=== PATIENT | female | born 2000 | race Caucasian/White ===

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

== ENCOUNTER 2022-06-29 11:53 | Inpatient (IN) | payer OTHER ==
[~2022-06-29] VITALS: Ht 167.6 cm; Wt 54.1 kg
[~2022-06-29 11:53] MED LIST changes: +ESCITALOPRAM OX10 MG PO; +HYDROXYZINE HCL25 MG PO; +ZOFRAN4 MG PO
--- NOTE | 2022-06-29 14:00 | NUR ---
PT ADMITTED TO CCU. REPORT RECEIVED FROM NEREIDA MEJIA. PT BROUGHT UP TO ROOM VIA STRECTHER BY THIS RN. MOTHER AT BEDSIDE. ASSESSMENT COMPLETED WELL CHARTING. PT HAS IV PLACED IN RIGHT FOREARM. PT LUNG SOUNDS SHOW EXPIRATORY WHEEZE, ACTIVE BOWEL TONES, AND STRONG HEART SOUNDS. PT SKIN INTACT WITH BRUSIE ON LEFT SHOULDER AND RIGHT WRIST. PT ALERT AND ORIENTED, PERRLA. PT HAS ABX FINISHING THROUGH LFA IV THAT WERE STARTED IN ED.
--- NOTE | 2022-06-29 15:45 | NUR ---
PT ASSISTED TO BATHROOM AND BACK TO BED WITH 1PA. PT UNSTEADY ON FEET AND ADVISED TO HOLD ON TO IV POLE THIS RN ASSISTED. PT VOIDED ADEQUATELY. P ASSISTED BACK INTO BED. MOTHER AT BEDSIDE, STATES SHE IS GOING HOME TO [employer] AND THEN SHE WILL BE BACK IN.
[2022-06-29] MEDS ORDERED: SERTRALINE HCL100 MG PO (16:16)
[2022-06-29] MEDS ORDERED: SERTRALINE HCL25 MG PO (16:16)
[2022-06-29] MEDS ORDERED: MONTELUKAST SOD10 MG PO (16:17)
[2022-06-29] MEDS ORDERED: VENTOLIN HFA18 GM INH (16:19)
--- NOTE | 2022-06-29 16:24 | NUR ---
PT RESTING IN BED IN ROOM WITH CALL LIGHT WITHIN REACH. PT LUNG SOUNDS DIMINISHED WITH EXPIRATORY WHEEZE THROUGHOUT. HEART SOUNDS STRONG, FAST. BOWEL TONES ACTIVE. PT ALERT AND ORIENTED, PERRLA. PT DENIES PAIN, NAUSEA, SOB. COMPLAINT OF GENERALIZED WEAKNESS. PT IS AFEBRILE AT THIS TIME. HR 95, BP 120/77 (89), O2 96%, AND RR 30.
--- NOTE | 2022-06-29 16:30 | NUR ---
Spoke with pt. She is tired. States Pricilla MOSS is her pcp. She lives alone in low income housing at the [facility]. 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 She works at [employer] which is within walking distance. She does not use any DME. States she has had tachycardia in the past, but did follow up. Plans on dc to home. Her mom, Brenda, is her emergency contact and works at [employer]. Pt is concerned about paying rent if she is not working. Let her know to contact crane manager and discuss and also to contact the hospital when she receives her bill to discuss payment plan. Home when cleared medically, mom will transport to home.
--- NOTE | 2022-06-29 17:57 | NUR ---
PT MOTHER BACK IN ROOM. PT RESTING IN BED WITH EYES CLOSED AND RESPIRATIONS EVEN AND UNLABORED. PT WOKE UP, ASKED PT ABOUT DINNER, PT DENIED WANTING TO EAT, STATING SHE IS TIRED. PT HAS POTASSIUM WITH D5 INFUSING IN RIGHT FA AND LR @ 125ML/HR IN LEFT FA. PT DENIES FURTHER NEEDS AT THIS TIME.
--- NOTE | 2022-06-29 18:05 | NUR ---
PHARMACIST JERRY IN ROOM DISCUSSING MEDICATION WITH PT AND MOTHER.
--- NOTE | 2022-06-29 18:09 | NUR ---
Medications reconciled using pharmacy records and interview with patient and patient's mother
--- NOTE | 2022-06-29 19:59 | NUR ---
PATIENT UP TO THE BATHROOM. STEADY ON HER FEET BUT SLOW. PATIENT REPORTS FEELING STIFF. PATIENT IS DIAPHORETIC AND FEELS COLD. ORAL TEMP WNL. GOWN AND BEDDING CHANGED, WARM BLNAKET PROVIDED. PATIENT DENIES PAIN OR NAUSEA. URINE IS CLEAR YELLOW. VS STABLE. IVF PER ORDER, SITE WNL. FAMILY AT BEDSIDE. NO OTHER NEEDS AT THIS TIME. CALL LIGHT IN REACH.
--- NOTE | 2022-06-29 22:47 | NUR ---
PATIENT APPEARS RESTFUL. VS STABLE. IV FLUIDS PER ORDER, SITE WNL. ALLOWED PATIENT TO REST. FAMILY AT BEDSIDE.
--- NOTE | 2022-06-30 00:13 | NUR ---
patient appears to be resting when rn in room. eye closed, vs stable. potassium rider started; iv site wnl.
--- NOTE | 2022-06-30 00:30 | NUR ---
PATIENT BECAME VERY ANXIOUS, CRYING AND MOVING RESTLESSLY IN BED. PATIENT IS NOT REPORTING HER CONCERNS TO STAFF DIRECTLY BUT HER MOM IS AT BEDSIDE AND HELPS TO CALM PATIENT. PATIENT REPORTS PAIN "EVERYWHERE". HR ELEVATED TO 110 AND RR 25. ORAL TEMP WNL. PATIENT DENIES DIRECT PAIN AT IV SITE; WHICH APPEARS WNL. DISCUSSED WITH . PATIENT RECEIVED ONE TIME DOSE OF TORADOL AND PRN ATIVAN. AFTER SEVERAL MINS PATIENT APPEARED MORE CALM.
--- NOTE | 2022-06-30 01:30 | NUR ---
PATIENT IS RESTING IN BED USING HER CELL PHONE. PATIENT IS CALM AND REPORTS IMPROVEMENT IN SYMPTOMS BUT DIFFICULTY SLEEPING. FRESH ICE WATER PROVIDED. PATIENT DENIED ANY OTHER NEEDS. CALL LIGHT IN REACH.
--- NOTE | 2022-06-30 05:48 | NUR ---
NEW IV FLUIDS STARTED. IV SITE WNL. PATIENT REQUEST A WARM BLANKET WHICH WAS PROVIDED. PATIENT DENIED NEED TO VOID. VS STABLE. CALL LIGHT IN REACH.
--- NOTE | 2022-06-30 07:51 | NUR ---
REPORT RECEIVED FROM NIGHT RN - PT SLEEPING ON SIDE IN BED, RR EVEN AND UNLABORED. VS WNL. CALL LIGHT AT SIDE AND MOTHER ASLEEP ON COUCH.
--- NOTE | 2022-06-30 08:25 | NUR ---
PATIENT RESTING IN BED WITH EYES CLOSED. MOM RESTING ON COUCH. TOOK SEVERAL TRIES BUT PATIENT FINALLY WOKE AND VITALS WERE TAKEN AND CHARTED. FRESH ICE WATER PROVIDED. PATIENT WILL WAKE AWHILE LONGER FOR BREAKFAST. CALL LIGHT AND PERSONALL ITEMS IN EASY REACH
--- NOTE | 2022-06-30 09:00 | NUR ---
Spoke with pt, no change in plan for cm at this time.
--- NOTE | 2022-06-30 09:00 | NUR ---
ASSESSMENT COMPLETE - PT WAKES EASILY, DENIES PAIN OR NAUSEA. VS REMAINS STABLE, RA. IV SITE PATENT X 2, ABX INFUSION STARTED. PT ANXIETY IMPROVED THIS AM. ALONE IN ROOM AND NOT DEMONSTRATING ANY SIGNS OF DISTRESS. CALL LIGHT AT SIDE.
--- NOTE | 2022-06-30 10:17 | NUR ---
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 PT IS STABLE CONDITION. ALL BELONGINGS SENT. PT TO UPDATE MOTHER ON CHANGE IN ROOMS VIA TEXT. REPORT GIVEN TO VINCE MEJIA.
--- NOTE | 2022-06-30 10:19 | NUR ---
RECEIVED BEDSIDE REPORT FROM DIANNE GLORIA RN. PT WAS TRANSFERRED FROM CCU AT THIS TIME. 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 DENIES ANY NEEDS AT THIS TIME, PT'S BED WAS CHANGED BEFORE COMING TO CCU, PT HAD TO VOID BEFORE ARRIVING HERE THEN WAS TRANSFERRRED IN HER BED. HOWEVER PT IS ABLE TO STAND AND AMBULATE WITH STANDBY ASSIST.
--- NOTE | 2022-06-30 11:00 | NUR ---
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 PT WAS ABLE TO AMBULATE WITH STANDBY ASSIT TO BATHROOM. PT BACK TO BED DENIES OTHER NEEDS, CALL LIGHT IN PLACE.
--- NOTE | 2022-06-30 12:32 | NUR ---
RECIEVED HAND OFF REPORT FROM ROBERTO PARIKH. PT AWAKE IN BED. DENIES FURTHER NEEDS. CALL LIGHT WITHIN REACH.
--- NOTE | 2022-06-30 13:25 | NUR ---
PT REPORTS A HEADACHE, PAIN /. PRN PAIN MEDICATION ADMINISTERED (PER EMAR). DENIES FURTHER NEEDS. CALL LIGHT WITHIN REACH.
--- NOTE | 2022-06-30 14:52 | NUR ---
PT RESTING AT THIS TIME, EYES CLOSED, EASY TO AROUSE. DENIES FURTHER NEEDS. CALL LIGHT WITHIN REACH
--- NOTE | 2022-06-30 16:30 | NUR ---
AFTERNOON ASSESSEMENT COMPLETE. PT RESTING IN BED AWAKE. DENIES PAIN. LUNG SOUNDS COURSE BILAT UPPER, DIM BILAT LOWER. IVF ADMINISTERING AT THIS TIME. DENIES PAIN AND NAUSEA. CALL LIGHT WITHIN REACH.
--- NOTE | 2022-06-30 16:53 | NUR ---
REPORTED TO THIS RN THAT PT WAS UNCONTROALABLY CRYING. ADMINISTERED PRN ATIVAN (PER EMAR). MOTHER AT BEDSIDE. CALL LIGHT WITHIN REACH. DENIES FUTHER NEEDS
--- NOTE | 2022-06-30 17:27 | NUR ---
CHECKED ON PATIENT. PT RESTING CALMLY IN BED, ON CELL PHONE. PT STATES SHE IS OKAY AND DENIES ANY NEEDS AT THIS TIME. REASSURED PT TO CALL WITH ANY NEEDS.
[2022-06-30] MEDS ORDERED: AMOX TR-K CLV1 EAC1 PO (18:33)
== END 2022-06-30 19:15 | disposition home or self-care (01) | DRG 871 ==
LOC: ED 11:53 → CCU 13:29 → MS 06-30 10:19
PROVIDERS: ADMIT Internal Medicine; ATTEND Internal Medicine
DX: A41.9 Sepsis, unspecified organism (principal); J13 Pneumonia due to Streptococcus pneumoniae; I47.1 Supraventricular tachycardia; J45.901 Unspecified asthma with (acute) exacerbation; Z20.822 Contact with and (suspected) exposure to COVID-19; E87.6 Hypokalemia; F41.9 Anxiety disorder, unspecified; Z90.49 Acquired absence of other specified parts of digestive tract; Z90.89 Acquired absence of other organs; Z79.899 Other long term (current) drug therapy
CPT/HCPCS: 36415; 71045; 80048; 80053; 81001; 83605; 83735; 84703; 85025; 87502; 94640; A9270; C9113; C9803; J0456; J0696; J1650; J1885; J2060; J2920; J3480; J7030; J7060; J7121; U0003

== ENCOUNTER 2024-03-12 07:30 | Day surgery (SDC) | payer OTHER ==
[~2024-03-12] VITALS: Ht 167.6 cm; Wt 51.6 kg
[~2024-03-12 07:30] MED LIST changes: +AMOX TR-K CLV1 EAC1 PO; +CEFAZOLIN SODIUM 2 GM/20 ML SYR IV SCH; +IBLOOD GLUCOSE TEST STRIP 1 EA TEST VI PRN; +LACTATED RINGER'S 1,000 ML IV SCH; +LIDOCAINE HCL 1% 5 ML SDV INJ ONE; +MONTELUKAST SOD10 MG PO; +SERTRALINE HCL100 MG PO; +SERTRALINE HCL25 MG PO; +VENTOLIN HFA18 GM INH
[2024-03-12 07:39] VITALS: BP 115/58
[2024-03-12] MEDS ORDERED: OXYMETAZOLINE HCL 30 ML BTL NAS SCH (08:00)
[2024-03-12] MEDS ORDERED: fentaNYL citrate 100 MCG/2 ML VIAL ONE (08:31)
[2024-03-12] MEDS ORDERED: LIDOCAINE HCL 2% 5 ML SDV ONE (08:31)
[2024-03-12] MEDS ORDERED: ondansetron HCL 4 MG/2 ML VIAL ONE (08:31)
[2024-03-12] MEDS ORDERED: propofoL 200 MG/20 ML VIAL ONE (08:31)
[2024-03-12] MEDS ORDERED: MIDAZOLAM HCL 2 MG/2 ML VIAL ONE (08:31)
[2024-03-12] MEDS ORDERED: DEXAMETHASONE SOD PHOS 4 MG/ML VIAL ONE (08:31)
[2024-03-12] MEDS ORDERED: ACETAMINOPHEN 1,000 MG/100 ML VIAL ONE (09:05)
[2024-03-12] MEDS ORDERED: SEVOFLURANE 250 ML BTL ONE (09:28)
[2024-03-12] MEDS ORDERED: IBLOOD GLUCOSE TEST STRIP 1 EA TEST VI PRN (09:45)
[2024-03-12] MEDS ORDERED: MIDAZOLAM HCL 2 MG/2 ML VIAL IV PRN (09:45)
[2024-03-12] MEDS ORDERED: fentaNYL citrate 50 MCG/ML SDV IV PRN (09:45)
[2024-03-12] MEDS ORDERED: ondansetron HCL 4 MG/2 ML VIAL IV PRN (09:45)
[2024-03-12] MEDS ORDERED: NALOXONE HCL 0.4 MG SYR IV PRN (09:45)
--- NOTE | 2024-03-12 10:09 | NUR ---
03/12/24 1009 Cathleen Griffiths 0953 PT ARRIVED IN PACU NON RESPONSIVE TO NOXIOUS STIMULI WITH OPA IN PLACE. CHIN LIFT HELD BY RN. 0950 PT REACTIVE. OPA REMOVED. 1003 C/O 8 PAIN IN NOSE. FENTANYL 50MCG GIVEN IVP. 1009 PAIN DOWN TO 10.
--- NOTE | 2024-03-12 10:15 | NUR ---
PT ARRIVES TO DS FROM PACU VIA STRETCHER. PT IS DROWSY, BUT ASKING APPROPRIATE QUESTIONS AND RESPONSIVE TO VERBAL STIMULI. PT REPORTS PAIN IS 1/10 AND TOLERABLE AT THIS TIME, W/NO NAUSEA. PT ON RA W/RESPIRATIONS EVEN AND UNLABORED, NO SIGNS OF DISTRESS W/O2>90% PER PULSE OX. REPORT RECEIVED FROM RONNA MEJIA W/SISTER AT BEDSIDE. PACKING IN PLACE, PT EDUCATED THAT MUST STAY IN PLACE AND TO AVOID TOUCHING, PT STATES VERBAL UNDERSTANDING AT THIS TIME. JELLO, ICE WATER, AND CRACKERS PROVIDED, PT TOLERATING ICE WATER WITHOUT DIFFICULTY. CALL LIGHT WITHIN REACH, PT STATES NO FURTHER NEEDS OR QUESTIONS AT THIS TIME.
[2024-03-12 10:17] VITALS: BP 118/66
--- NOTE | 2024-03-12 10:55 | NUR ---
IN PT ROOM FOR PAIN ASSESSMENT. PT STATES PAIN IS TOLERABLE AT THIS TIME. PT CONSUMED JELLO AND CRACKERS W/OUT ONSET OF NAUSEA. DRIP PAD PLACED AND DEMONSTRATED FOR PT AND PT SISTER. VERBAL UNDERSTANDING BY PT TO DEMONSTRATION. PT STATES NO FURTHER QUESTIONS OR NEEDS AT THIS TIME, CALL LIGHT WITHINR EACH.
[2024-03-12] MEDS ORDERED: HYDROCODONE/ACETA 5/325 TAB PO PRN (11:00)
--- NOTE | 2024-03-12 11:10 | NUR ---
IN PT ROOM FOR ATTEMPT TO URINE VOID. PT SITS AT BEDSIDE AND REPORTS NO NAUSEA/DIZZINESS. PT STANDS AT BEDSIDE AND NO NAUSEA/DIZZINESS REPORTED. PT GAIT STEADY, THIS RN STANDBY ASSIST TO RESTROOM FOR PT URINE VOID OF 550 ML CLEAR/YELLOW URINE. PT BACK IN ROOM AND GETTING DRESSED AT THIS TIME. PT IN ROOM TO ASSIST. CALL LIGHT WITHIN REACH.
--- NOTE | 2024-03-12 11:13 | OR ---
[facility] [address] [place], [place] [address] Signed DATE OF OPERATION: 03/12/2024 SURGEON: Carlos Reed MD PREOPERATIVE DIAGNOSIS: Nasal obstruction due to septal deformity and inferior turbinate hypertrophy. 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 PROCEDURE: Septoplasty, cautery of bilateral inferior turbinates, submucosal. ANESTHESIA: General, LMA; CRATE LINER, Johanny PREOP HISTORY: Joe is a 24-year-old young lady with chronic nasal obstruction, longstanding, uncorrected with appropriate medications. She is taken to the operating for the above-mentioned procedures. OPERATIVE PROCEDURE AND FINDINGS: After informed consent, the patient was taken to the operating room, placed in the supine position, where general, LMA anesthesia was induced. The patient received preoperative intravenous Ancef and intranasal oxymetazoline. The patient and procedure were verified. Headlight speculum exam of the nasal cavity showed a significant septal deformity, nearly completely obstructive on the right. Inferior turbinates were decongested. The septal mucosa was injected with 1% lidocaine with epi. All deviated septal bone and cartilage were then excised with the Evert. On the right side, the septum was medialized with the speculum. Airway was improved in this manner. The inferior turbinates were then cauterized with a long handle needle point cautery, multiple passes, transmucosal starting on the left side. The medial and inferior surface of the inferior turbinate cauterized starting anteriorly, extending all the way back posteriorly. Excellent shrinkage and improvement in the airway was obtained. Same procedure on the right inferior turbinate. Minimal bleeding stopped afterwards. Packing was then placed, trimmed Merocel one piece each side, coated with Neosporin tied anteriorly over a pad. The pharynx was suctioned clear of blood and secretions. The patient was then awakened, extubated, and transported to the recovery room in good condition. Electronically Signed By: CARLOS REED MD 03/12/24 1113 PATIENT NAME: JOE HAN OPERATIVE REPORT DATE OF : [birth year] REPORT #: [id number] PHYSICIAN: CARLOS REED MD PCP: SERAFIN PALOMARES PA-C REPORT IS CONFIDENTIAL AND NOT TO BE RELEASED WITHOUT AUTHORIZATION [address] [place], [place] [address] Signed COMPLICATION: No complications. BLOOD LOSS: Minimal. SPECIMEN: No specimen. DRAINS: No drains. PACKING: One piece of Merocel in each nostril. Carlos Reed MD GC/MODL /[id number] Copies: ~ Electronically Signed By: CARLOS REED MD 03/12/24 1113 PATIENT NAME: JOE HAN OPERATIVE REPORT DATE OF : [birth year] REPORT #: [id number] PHYSICIAN: CARLOS REED MD PCP: SERAFIN PALOMARES PA-C REPORT IS CONFIDENTIAL AND NOT TO BE RELEASED WITHOUT AUTHORIZATION
[2024-03-12 11:25] VITALS: BP 111/67
--- NOTE | 2024-03-12 11:35 | NUR ---
THIS RN IN ROOM FOR DC EDUCATION. PT STATES VERBAL UNDERSTANDING AND NO FURTHER QUESTIONS OR NEEDS AT THIS TIME. PT OFF OF UNIT VIA WC TO PASSENGER SIDE OF SISTER'S VEHICLE. ALL BELONGINGS IN PT POSSESSION AT THIS TIME. ICE WATER, GAUZE/TAPE FOR DRIP PAD PROVIDED. PT STATES NO FURTHER QUESTIONS OR NEEDS AT THIS TIME.
[2024-03-12] MEDS ORDERED: SEVOFLURANE 250 ML BTL INH ONE (13:40)
== END 2024-03-12 11:35 | disposition home or self-care (01) ==
LOC: DS 07:30
PROVIDERS: ATTEND Otolaryngology
PROC: 09BM0ZZ Excision of Nasal Septum, Open Approach (ICD-10-PCS; principal; 2024-03-12 09:00)
PROC: 095L0ZZ Destruction of Nasal Turbinate, Open Approach (ICD-10-PCS; 2024-03-12 09:00)
DX: J34.2 Deviated nasal septum (principal); J34.3 Hypertrophy of nasal turbinates
CPT/HCPCS: 00160; J0131; J0690; J1100; J2003; J2250; J2405; J2704; J3010; J7121

== ENCOUNTER 2024-05-26 03:36 | Emergency (ER) | payer OTHER ==
[~2024-05-26] VITALS: Ht 167.6 cm; Wt 54.9 kg
[~2024-05-26 03:36] MED LIST changes: -CEFAZOLIN SODIUM 2 GM/20 ML SYR IV SCH; -IBLOOD GLUCOSE TEST STRIP 1 EA TEST VI PRN; -LACTATED RINGER'S 1,000 ML IV SCH; -LIDOCAINE HCL 1% 5 ML SDV INJ ONE
[2024-05-26] MEDS ORDERED: ondansetron HCL 4 MG/2 ML VIAL IV ONE (03:45)
[2024-05-26] MEDS ORDERED: HYDROmorphone HCL 1 MG/ML SYR IV PRN ×2 (03:45→05:30)
[2024-05-26] MEDS ORDERED: DIPHTH,PERTUSS(ACELL),TET VAC 0.5 ML SYRINGE IM ONE (03:45)
[2024-05-26 03:56] LABS: BASOPHILS 1.1 % (0-2); EOSINOPHILS 0.7 % (0-6); HEMATOCRIT 40.1 % (35.0-50.0); HEMOGLOBIN 13.3 g/dL (12.0-18.0); LYMPHOCYTES 23.8 % (24-44); MCH 29.8 (27-36); MCHC 33.2 g/dl (30-36); MCV 89.9 fl (81-99); MONOCYTES 4.8 % (0-12); NEUTROPHILS 69.6 % (39-80); PLATELET COUNT 551 K/uL (140-440); RBC 4.46 M/ul (4.3-5.7); RDW 13.5 (10.5-15.0)
[2024-05-26 04:16] LABS: BILIRUBIN, URINE NEGATIVE (negative); BLOOD/HGB, URINE SMALL (Negative); KETONE, URINE NEGATIVE (Negative); LEUK ESTERASE, URINE NEGATIVE (negative); NITRITE, URINE NEGATIVE (negative)
[2024-05-26 04:25] LABS: ALBUMIN 4.1 g/dL (3.4-5.0); ALBUMIN/GLOBULIN RATIO 0.98 (1.1-2.4); ALCOHOL, MEDICAL 166 ng/dL (<3); ALKALINE PHOSPHATASE 76 U/L (46-116); ALT (SGPT) 23 U/L (14-59); AST (SGOT) 16 U/L (15-37); BILIRUBIN, TOTAL 0.5 ng/dL (0.2-1.0); CARBON DIOXIDE 18 mmol/L (21-32); CHLORIDE 102 mmol/L (98-107); CREATININE, SERUM 0.71 mg/dL (0.55-1.02); GLOMERULAR FILTRATION RATE,EST 123 mL/min (>60); PROTEIN, TOTAL 8.3 g/dL (6.4-8.2); UREA NITROGEN 12 mg/dL (7-18)
[2024-05-26 04:25] LABS: BACTERIA, URINE NONE SEEN /hpf (negative); CASTS, URINE NONE SEEN \\lpf; CRYSTALS, URINE NONE SEEN (0-1+); EPITHELIAL CELLS, URINE SQUAMOUS 1+ /lpf (0-1+); WHITE BLOOD CELLS, URINE 0-1 /HPF (0-5)
[2024-05-26 04:26] LABS: COLLECTION TYPE, URINE CLEAN CATCH; REFLEX CULTURE, URINE No (No)
[2024-05-26 04:30] LABS: AMPHETAMINES, URINE NEGATIVE (NEGATIVE); BARBITURATES, URINE NEGATIVE (NEGATIVE); BENZODIAZEPINE, URINE NEGATIVE (NEGATIVE); BUPRENORPHINE, URINE NEGATIVE (NEGATIVE); CANNABINOID, URINE POSITIVE (NEGATIVE); COCAINE, URINE NEGATIVE (NEGATIVE); ECSTASY, URINE NEGATIVE (NEGATIVE); FENTANYL, URINE NEGATIVE (NEGATIVE); METHADONE, URINE NEGATIVE (NEGATIVE); OPIATES, URINE NEGATIVE (NEGATIVE); OXYCODONE, URINE NEGATIVE (NEGATIVE); PHENCYCLIDINE, URINE NEGATIVE (NEGATIVE)
[2024-05-26 05:02] LABS: ABO O; ANTIBODY SCREEN NEGATIVE; RH POSITIVE
[2024-05-26] MEDS ORDERED: TRAMADOL HCL50 MG PO (06:04)
[2024-05-26 06:31] VITALS: BP 103/68
== END 2024-05-26 06:40 | disposition home or self-care (01) ==
LOC: ED 03:36
PROVIDERS: Family Medicine
DX: S16.1XXA Strain of muscle, fascia and tendon at neck level, initial encounter (principal); S09.90XA Unspecified injury of head, initial encounter; M54.50 Low back pain, unspecified; M54.6 Pain in thoracic spine; V59.9XXA Occupant (driver) (passenger) of pick-up truck or van injured in unspecified traffic accident, initial encounter
CPT/HCPCS: 36415; 70450; 71260; 72125; 73080; 74177; 80053; 80307; 81001; 84702; 85025; 86850; 86900; 86901; 90471; 90715; 99284-25; G0480; Q9967